=== PATIENT | female | born 1990 | race Two or more races ===

== ENCOUNTER 2020-04-20 16:01 | Emergency (ER) | payer OTHER ==
[~2020-04-20] VITALS: Ht 165.1 cm; Wt 70.3 kg
[2020-04-20 16:34] VITALS: BP 117/78
[2020-04-20] MEDS ORDERED: ACETAMINOPHEN 500 MG TAB PO ONE (17:00)
== END 2020-04-20 17:58 | disposition home or self-care (01) ==
LOC: ER 16:01
DX: R51 Headache (principal); V49.9XXA Car occupant (driver) (passenger) injured in unspecified traffic accident, initial encounter; Y93.89 Activity, other specified; Y92.89 Other specified places as the place of occurrence of the external cause; Y99.8 Other external cause status
CPT/HCPCS: 70450